=== PATIENT | female | born 1995 | race Hispanic/Latino ===

== ENCOUNTER 2018-08-30 16:12 | Inpatient (IN) | payer OTHER ==
[2018-08-30] MEDS ORDERED: Ondansetron PF 4 MG/2 ML Vial ONE ×2 (16:46→21:10)
[2018-08-30] MEDS ORDERED: ePHEDrine 50 MG/ML VIAL ONE (16:46)
[2018-08-30] MEDS ORDERED: Promethazine HCl 25 MG/ML VIAL IM PRN ×2 (16:47→20:34)
[2018-08-30] MEDS ORDERED: Ondansetron PF 4 MG/2 ML Vial IVP PRN ×2 (16:47→20:34)
[2018-08-30] MEDS ORDERED: CEFAZOLIN 2 GM in Premix Bag 1 BAG IVPB SCH (17:00)
[2018-08-30] MEDS ORDERED: Bicitra 30 ML UDCUP PO SCH (17:00)
[2018-08-30 17:22] LABS: Mean Corpuscular HGB CONC 34.8 g/dL (32.0-36.0); Mean Corpuscular Hemoglobin 29.4 pg (27.0-31.0); Mean Corpuscular Volume 84.6 fL (78.0-98.0); Mean Platelet Volume 8.2 fL (7.4-10.4); Platelet Count 200 thou/uL (130-400); Red Blood Cell (RBC) Count 4.09 mill/uL (4.20-5.40); White Blood Cell (WBC) Count 8.1 thou/uL (4.8-10.8)
[2018-08-30 17:36] LABS: ALT (SGPT) 10 U/L (8-55); AST (SGOT) 15 U/L (5-34); Albumin 3.3 g/dL (3.5-5.0); Alkaline Phosphatase 202 U/L (40-150); Anion Gap 16 mmol/L (10-20); BUN (Urea Nitrogen) 10 mg/dL (7.0-18.7); Bilirubin, Total 0.3 mg/dL (0.2-1.2); Calc. Creatinine Clearance 0 mL/min (70-130); Calcium 9.1 mg/dL (7.8-10.44); Carbon Dioxide 19 mmol/L (22-29); Chloride 107 mmol/L (98-107); Estimated GFR-MDRD Greater than 90; Globulin 3.2 g/dL (2.4-3.5); Glucose 77 mg/dL (70-105); Magnesium 1.8 mg/dL (1.6-2.6); Potassium 4.5 mmol/L (3.5-5.1); Protein, Total 6.5 g/dL (6.0-8.3); Sodium 137 mmol/L (136-145)
[2018-08-30 17:43] VITALS: BMI 42.6
[2018-08-30 17:54] LABS: HBSAg Index 0.36 S/CO (0-0.99); Hep B Surf Ag Non-Reactive S/CO (NonReactive); Syphilis Antibody Nonreactive (Nonreactive); Syphilis Antibody Index 0.12 S/CO (<1.00 Non-Reactive)
[2018-08-30 17:55] LABS: Troponin I Less than 0.010 ng/mL (< 0.028)
--- NOTE | 2018-08-30 18:02 | PDOC.FPROB ---
FMR OB H&P: HPI - History of Present Illness Chief Complaint: elevated anti-c Indentification: 23 year old @ 37.4 wks by LMP/8.2 wk sono History of Present Illness: Christina Matson 23 year old @ 37.4 wks by LMP/8.2 wk sono who presents to L&D due to elevated anti-c antibody titer. No prior history of anemia or FOB has not been tested. Of note, pt has a history of pulmonic stenosis, antepartum echocardiogram did not adequately visualize pulmonic valve. EF and other structures wnl. Primary Care Physician: Marcia FMR OB H&P: Current - Care : 3 Para: 2001 Gestational age: 37.4 Due date: 09/16/2018 Dating Criteria: LMP/8.4 wk sono - OB Labs Blood type: A RH: positive Antibody Screen: positive HIV: negative RPR: negative HepBsAg: negative Rubella: immune Quad screen: negative Pap Smear: NILM (01/2018) 1 hour gtt: 135 A1c: 4.8 GBS: negative H&H: 12.7/37.2 Platelets: 244 - First Trimester Ultrasound First trimester: Performed at 8.2 wks no abnormalities noted. - Anatomy Survey Anatomy survey: Posterior placenta RVOF, 4-chamber view not well-visualized. - Additional Ultrasound Additional: RVOF not well-visualized on follow-up US. echo recommended. Performed on 07/25/18 which showed normal structural heart with possible atrial septal aneurysm. FMR OB H&P: History - [employer] History [employer] History: Menarche @ age 9 Menses interval: 28 days Menstrual flow: 5 days - Surgical History Sx History: C/S x 2 (2012, 2014) - Social History Social History: Prior smoking history. Denies alcohol and drug use. - Family History Family History: HTN: Mother DM II: maternal grandmother, maternal uncle FMR OB H&P: Medications - Current Home Medications: Medication Instructions Recorded Confirmed Type Vitamin 1 tab PO DAILY #0 tab 04/10/13 03/22/15 Rx Allergies/Adverse Reactions: Allergies Allergy/AdvReac Type Severity Reaction Status Date / Time No Known Allergies Allergy Verified 03/22/15 10:30 FMR OB H&P: ROS - Review of Systems General: denies: fever/chills, weight/appetite/sleep changes, night sweats, fatigue, recent trauma, other Eyes: denies: eye pain, vision changes, double vision, scotomas, floaters, others ENT: denies: nasal congestion, rhinorrhea, frequent nose bleed, sinus pain/ pressure, ear pain, ringing in ears, toothache, sore throat, pain with swallowing, trouble with swallowing, other Cardiovascular: denies: chest pain, palpitation, edema, paroxysmal nocturnal dyspnea, orthopnea, claudication, other Respiratory: denies: cough, congestion, shortness of breath, exercise intolerance, other Gastrointestinal: denies: abdominal pain, indigestion, bloating, cramping, nausea, vomiting, diarrhea, constipation, bright red blood, dark black tarry stools, other Genitourinary (Female): denies: incontinence, dysuria, hematuria, polyuria, hesitancy, vaginal discharge, vaginal pain, vaginal bleeding, vaginal mass/sore , contractions, vaginal pressure, other Musculoskeletal: denies: pain, stiffness, tenderness, redness, swelling, decrease range of motion, arthritis/arthralgias, other Neurologic: denies: numbness, syncope, seizures, weakness, loss of counsciousness, headache, other Integumentary: denies: itching, rash, lesions, discoloration, hair changes, nail changes, other Endocrine: denies: cold intolerance, heat intolerance, polydipsia, polyuria, polyphagia, other Psychological: denies: depression, anxiety, paranoia, episodes of chani, episodic change in person, hallucinations, other FMR OB H&P: Vital Signs - Maternal Vital signs: Vital Signs - First Documented Temp Pulse Resp BP Pulse Ox 98.7 F 86 16 105/57 L 97 08/30/18 16:33 08/30/18 16:33 08/30/18 16:33 08/30/18 16:33 08/30/18 16:33 - Heart Tones [place] contractions every: absent FMR OB H&P: Physical Exam - Physical Exam General: NAD HEENT: normocephalic and atraumatic, EOMI, MMM Neck: supple Heart: RRR, normal S1/S2 (2/6 holosystolic murmur heard best in left 2nd intercostal space), no edema, other General: CTAB Abdomen: soft, gravid, non-tender Musculoskeletal: pulses present, FROM in all four extremities, no atrophy Neurological: cranial nerves II through XII intact Skin: no rash Lymphatic: no unusual bruising or bleeding Psychiatric: normal mood and affect FMR OB H&P: Results - Labs Lab results: Laboratory Results - last 24 hr 08/30/18 08/30/18 08/30/18 17:03 17:03 17:03 WBC 8.1 RBC 4.09 L Hgb 12.0 Hct 34.6 L MCV 84.6 MCH 29.4 MCHC 34.8 RDW 14.0 Plt Count 200 MPV 8.2 Sodium Potassium Chloride Carbon Dioxide Anion Gap BUN Creatinine Estimated GFR (MDRD) Glucose Calcium Magnesium Total Bilirubin AST ALT Alkaline Phosphatase Troponin I B-Natriuretic Peptide Serum Total Protein Albumin Globulin Albumin/Globulin Ratio Syphilis IgG/IgM Ab Nonreactive Hep Bs Antigen Non-Reactive 08/30/18 08/30/18 08/30/18 17:03 17:03 17:23 WBC RBC Hgb Hct MCV MCH MCHC RDW Plt Count MPV Sodium 137 Potassium 4.5 Chloride 107 Carbon Dioxide 19 L Anion Gap 16 BUN 10 Creatinine 0.63 Estimated GFR (MDRD) Greater than 90 Glucose 77 Calcium 9.1 Magnesium 1.8 Total Bilirubin 0.3 AST 15 ALT 10 Alkaline Phosphatase 202 H Troponin I Less than 0.010 B-Natriuretic Peptide 16.4 Serum Total Protein 6.5 Albumin 3.3 L Globulin 3.2 Albumin/Globulin Ratio 1.0 L Syphilis IgG/IgM Ab Hep Bs Antigen FMR OB H&P: A/P - Problem List (1) antibody c positive Current Visit: Yes Status: Acute (2) Term Current Visit: Yes Status: Acute Code(s): Z34.90 - ENCNTR FOR SUPRVSN OF NORMAL , UNSP, UNSP TRIMESTER (3) History of pulmonary valve stenosis Current Visit: Yes Status: Acute Code(s): Z86.79 - PERSONAL HISTORY OF OTHER DISEASES OF THE CIRCULATORY SYSTEM Disposition: Will admit patient to L&D for urgent repeat given risk of alloimmunization and HDFN/ anemia Cardiac work-up to include trop, BNP, EKG, given pt's history of pulmonic valve stenosis and risk for HF. maternal vitals wnl. Cat 1 strip. VTE proph: SCDs. Discussion: Date/Time: 08/30/18 1800 This H&P was discussed with [] and [] who agree with the above documentation and plan. Addendum - Attending - Attending Attestation Date/Time: 08/30/18 1900 I personally evaluated the patient and discussed the management with Dr. Carmen I agree with the History, Examination, Assessment and Plan documented above with any addition or exceptions noted below. 23 yo female at 37.4 wks by LMP/8.2 wk sono here for RLTCS. Patient with history of at risk for HDFN due to progressive alloimmunization. Patient recently underwent lab work. Patient previously with stable antibody titer. Last month increased to 1:8 and now increased to 1:32. Patient denies VB or trauma. Good movement. R/B/A discussed with the patient and . Questions answered. Discussed possible complications with expectant management. NST reactive. No evidence of acute distress at this time. Unable to perform MCA dopplers. ACOG/SMFM recommendations reviewed. Discussed with patient. Attempted to contact M that has been following, but unable to reach after several attempts. Patient agrees to proceed with planned delivery. 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 Has been evaluated by cardiology. No restrictions. ECHO report reviewed. Anesthesia notified of risk. Will monitor fluids and oxytocin dosing. Baseline EKG, BNP, CMP, trop ordered. Will monitor closely for HDFN and hyperbilrubinemia. Will also need ECHO performed due to ECHO findings of possible atrial aneurysm. No use of inhaler this . Will avoid hemabate if needed. Meghna
[2018-08-30] MEDS ORDERED: Lactated Ringer's 1,000 ML IV SCH (18:30)
[2018-08-30] MEDS ORDERED: Adacel (T-DAP) 0.5 ML SYRINGE IM ONE (19:58)
[2018-08-30] MEDS ORDERED: Bisacodyl 10 MG SUPP PR PRN (19:58)
[2018-08-30] MEDS ORDERED: Acetaminophen 325 MG TAB PO PRN (19:58)
[2018-08-30] MEDS ORDERED: Lanolin Ointment 7 GM TUBE TOP PRN (19:58)
[2018-08-30] MEDS ORDERED: MORPHINE 5 MG/10 ML PF VIAL ONE (20:17)
[2018-08-30] MEDS ORDERED: ePHEDrine/0.9% NaCl/PF SYRINGE 50 mg/10 ml ONE (20:18)
[2018-08-30] MEDS ORDERED: Oxytocin 10 UNITS/ML VIAL ONE ×2 (20:18→21:37)
[2018-08-30] MEDS ORDERED: Promethazine HCl 25 MG SUPP PR PRN (20:34)
[2018-08-30] MEDS ORDERED: Hydrocerin (Eucerin) Cream 120 gm Jar TOP PRN (20:34)
[2018-08-30] MEDS ORDERED: HYDROmorphone 2 MG/ML VIAL SLOW IVP PRN (20:34)
[2018-08-30] MEDS ORDERED: Naloxone HCl 0.4 mg/ml Vial IVP PRN ×2 (20:34)
[2018-08-30] MEDS ORDERED: Ondansetron HCl/PF 4 MG/2 ML Vial IVP PRN (20:34)
[2018-08-30] MEDS ORDERED: Meperidine HCl/PF 25 MG/ML VIAL SLOW IVP PRN (20:34)
[2018-08-30] MEDS ORDERED: diphenhydrAMINE 50 MG/ML VIAL IVP PRN (20:34)
[2018-08-30] MEDS ORDERED: L&D-Morphine 4 MG/ML VIAL SLOW IVP PRN (20:34)
[2018-08-30] MEDS ORDERED: Naloxone HCl 0.4 mg/ml Vial IV PRN (20:34)
[2018-08-30] MEDS ORDERED: Communication Order-Pharmacy FS SCH (20:45)
[2018-08-30] MEDS ORDERED: Ketorolac Tromethamine 30 MG/ML VIAL IVP SCH (20:45)
[2018-08-30] MEDS ORDERED: Ibuprofen 800 MG TAB PO SCH (22:00)
[2018-08-30] MEDS ORDERED: Misoprostol 200 MCG TAB PR SCH (22:45)
[2018-08-30] MEDS ORDERED: Misoprostol 200 MCG TAB ONE (23:10)
--- NOTE | 2018-08-30 23:10 | PDOC.OPDEL ---
OB Operative/Delivery Note - Additional Findings/Plan Compilations/Other Findings: Date of Procedure: 08/30/2018 Primary Surgeon: Bibiana Morris MD Commercial Management Accountant Surgeon: Darcy Hester DO, DO Preoperative Diagnosis: 1. Adhikari intrauterine at 37.4 weeks gestation 2. At risk with progressive alloimmunization (Anti-c) 3. BMI 43 4. hx of LTCS x2 5. hx of congenital heart disease with pulmonary stenosis 6. mild intermittent asthma, controlled Postoperative Diagnosis: 1. Adhikari intrauterine at 37.4 weeks gestation 2. At risk with progressive alloimmunization (Anti-c) 3. BMI 43 4. hx of LTCS x2 5. hx of congenital heart disease with pulmonary stenosis 6. mild intermittent asthma, controlled Procedure Performed: 1. Repeat low transverse section 2. Lysis of Adhesions Anesthesia: Spinal Indications for the Procedure: Ms. Matson is a 23 year old female at 37.4 weeks gestation. Patient was contacted earlier today for notification of worsening antibody titers (1:8 to 1:32) and risk for compromise. Patient with history of previous delivery x 2. Surgical risks: The patient was informed of the risk and benefits of the procedure. Risks included but were not limited to bleeding, infection, injury to internal organs , and possible hysterectomy. The patient expressed understanding of the risks involved. All questions were answered and the patient consented to the procedure. Description of the procedure: The patient was taken to the operating room where a time out was performed to confirm correct patient and correct procedure. Spinal anesthesia was adequately established and prophylactic IV antibiotics were administered. The patient was then placed in the dorsal supine position with a left tilt of the hips. Pressure points were padded. A Bovie grounding pad was placed on the patients left lower extremity. Arias catheter was placed to monitor urine output during the case. A Roly hugger was placed to maintain control of core body temperature. The patient was then prepped and draped in the usual sterile fashion for a Pfannensteil skin incision. An incision was made in the skin with a surgical scalpel and sharp and blunt dissection was carried out over the subsequent layers of tissue including the fascia The fascia was incised at the midline. The fascial incision was extended bilaterally using the curved Dewey scissors. Moderated scarring noted. The superior edge of the fascial incision was grasp with Michelle clamps, tented up and the underlying rectus muscles were dissected off bluntly and sharply using curved Dewey scissors and Bovie electrocautery. Scarring noted and adhesions lysed as needed. Attention was then turned to the inferior edge, which was grasped with Michelle clamps, tented up and the underlying rectus muscles were dissected off bluntly. The rectus muscles were then divided at midline. Omentum was adhesed superiorly and carefully taken down as needed for visualization. The peritoneum was identified and bluntly entered at its superior margin taking care to avoid the bladder and extended using blunt dissection with good visualization of the bladder. Emile-O retractor was inserted. A transverse incision was made in the lower uterine segment using the scalpel. The uterine incision was extended in cranial-caudal direction using blunt dissection. The amniotic sac was entered bluntly and the amniotic fluid was noted to be clear. The surgeons hand was placed into the uterine cavity. The head was identified, elevated into the abdomen and delivered through the uterine incision with the assistance of fundal pressure. The was examined for a nuchal cord. No nuchal cord was identified. The infant was then delivered with traction and the assistance of fundal pressure. The infants oral and nasal passages were bulb suctioned. Cord clamping was delayed for at least 60 seconds. The was then passed off the table to the awaiting hank team for further care. Cord blood were collected for routine analysis. The placenta was expressed manually, intact with three-vessel cord. Oxytocin was administered by IV infusion to enhance uterine contractions. The uterus was exteriorized and cleared of all clots and remaining products of conception. The uterine incision was reapproximated using 0 Monocryl in a running (locked fashion. Non-hemostatic areas were reinforced using 0 Monocryl suture in [id number] stitches. Good hemostasis was confirmed. The abdomen was evaluated, suctioned and cleared of visible clots. The uterus was replaced into the abdomen and the pericolic gutter were cleared of all clots. The fascia was reapproximated using 0 PDS in a running non-locked fashion. Fascia and surrounding tissue was irrigated with warm NS followed by Bovie electrocautery for non-hemostatic areas. The subcuticular tissue was reapproximated using 3-0 Plain Gut in simple interrupted/ fashion. The skin was reapproximated using 4-0 Monocryl. Wound vac placed. All needle, sponge, and instrument counts were noted to be correct x 3 at the end of the procedure. The patient tolerated the procedure well and was transferred to the recovery room in stable condition. Intravenous Fluids: 1.5 L Urine output: 300 mL Qualitative Blood Loss: 725 mL Findings: Viable Male delivered at 20:56 weighing 3052 g with scores of 7 and 9 at one and five minutes, respectively. Normal appearing uterus, ovaries, and fallopian tubes bilaterally. Complications: None Disposition: Routine pp care.
[2018-08-31] MEDS ORDERED: Sodium Chloride 0.9% 10 ML ONE ×2 (01:38→01:44)
[2018-08-31] MEDS: Ketorolac Tromethamine 30 MG/ML VIAL IVP PRN ×3 (01:48→17:28)
--- NOTE | 2018-08-31 02:06 | PDOC.EVN ---
Event Note - Event Note Event Note: 4 HOUR POST OP NOTE: Subjective: This is a 23 yo who delivered a viable M @ 37.4wks by at 2055 on 08/30/18. Patient is recovering well. She does complain of a mild headache and some nausea. She denies any abdominal pain. Denies vision changes, SOB, chest pain. Per nurse, she has minimal bleeding. Objective: VS stable PE: General: resting comfortably in bed, no acute distress Cardio: RRR Pulm: CTAB, non labored breathing Abdomen: mild TTP more in LLQ, no rebound or guarding; wound vac in place over incision - clean, dry and intact MSK: no LE edema Neuro: non focal A&P - Continue routine PP Care - Will continue to monitor VS - Will give zofran PRN for nausea - Tylenol/motrin PRN for pain/headache
[2018-08-31 07:33] LABS: Hemoglobin 10.2 g/dL (12.0-16.0); Mean Corpuscular HGB CONC 34.1 g/dL (32.0-36.0); Mean Corpuscular Hemoglobin 29.4 pg (27.0-31.0); Mean Corpuscular Volume 86.3 fL (78.0-98.0); Mean Platelet Volume 7.7 fL (7.4-10.4); Platelet Count 165 thou/uL (130-400); RBC Distribution Width 14.2 % (11.5-14.5); Red Blood Cell (RBC) Count 3.47 mill/uL (4.20-5.40)
--- NOTE | 2018-08-31 08:20 | PDOC.PP ---
Post Progress Note Post Day #: 1 Subjective: Pt feeling well this AM, reports some rest overnight. Good pain control. Tolerating PO fluids, has not tried solids, no ambulation yet, no flatus. No complaints or concerns at this time. Vital Signs (12 hours) Temp Pulse Resp BP Pulse Ox 08/31/18 06:10 98.3 F 82 18 100/51 L 97 08/31/18 02:30 98.2 F 77 18 106/49 L 96 08/31/18 01:30 97.9 F 87 18 105/48 L 96 08/31/18 00:25 97.7 F 80 18 105/47 L 95 Weight Weight 105.687 kg - Physical Examination General: NAD Cardiovascular: RRR Deviation from normal: grade 3/6 holosystolic murmur Respiratory: clear to auscultation bilaterally, non-labored breathing Abdominal: no distention, appropriately TTP Deviation from normal: wound vac in place Neurological: no gross focal deficits Psychiatric: A&Ox3, normal affect Result Diagrams: 08/31/18 07:20 08/30/18 17:03 Additional Labs: Post Labs Blood Type A POSITIVE 08/30/18 17:03 Hep Bs Antigen Non-Reactive S/CO (NonReactive) 08/30/18 17:03 (1) care and examination Code(s): Z39.2 - ENCOUNTER FOR ROUTINE FOLLOW-UP Status: Acute (2) History of pulmonary valve stenosis Code(s): Z86.79 - PERSONAL HISTORY OF OTHER DISEASES OF THE CIRCULATORY SYSTEM Status: Acute (3) antibody c positive Status: Acute (4) Asthma Code(s): J45.909 - UNSPECIFIED ASTHMA, UNCOMPLICATED Status: Active - Assessment/Plan This is a 23 yo who delivered a viable M @ 37.4wks by at 2055 on 08/30/18 Post care A- recovering well overall, anticipate ambulation and PO solid intake today. Will await + flatus or BM. P- Continue PREETHI motrin with prn tylenol -zofran prn for nausea -encourage breast feeding Pulmonary valve stenosis A- MD aware, currently hemodynamically stable. murmur present on exam P- Will be cautious with fluids Asthma A- Pt controlled, no exacerbation P- albuterol prn Anti-C antibody A- MD aware, at risk for hemolytic hyperbilirubinemia P- mgmt per mgmt Addendum - Attending - Attending Attestation Date/Time: 08/31/18 5931 I personally evaluated the patient and discussed the management with Dr. Fleming I agree with the History, Examination, Assessment and Plan documented above with any addition or exceptions noted below. Stable POD #1. Meeting milestones. Lungs clear with no evidence of fluid overload. Browning still in place with UOP >50 ml/hr over last 12hr. Acute blood loss anemia in setting of chronic anemia of . Appropriate postoperative H+H. D/c browning today. Encourage ambulation.
[2018-08-31] MEDS: Prenatal Vitamin 1 TAB PO SCH (08:21)
[2018-09-01] MEDS: Ibuprofen 800 MG TAB PO SCH ×4 (00:18→22:07)
--- NOTE | 2018-09-01 07:59 | PDOC.PP ---
Post Progress Note Post Day #: 2 Subjective: Pt continues to feel well. Reports good pain control but that she does not like to get up and ambulate because of discomfort. Good PO toleration, + flatus, no BM. reports she feels well enough to go home this afternoon/evening. No concerns or complaints. Vital Signs (12 hours) Temp Pulse Resp BP Pulse Ox 09/01/18 04:20 98.3 F 75 18 93/51 L 09/01/18 00:20 98.4 F 94 18 94/51 L 08/31/18 20:20 98.5 F 101 H 18 96/49 L 97 Weight Weight 105.687 kg - Physical Examination General: NAD Cardiovascular: RRR Deviation from normal: Grade 3/6 holosystolic murmur Respiratory: clear to auscultation bilaterally, non-labored breathing Abdominal: + bowel sounds, no distention, appropriately TTP Deviation from normal: wound vac in place Neurological: no gross focal deficits Psychiatric: A&Ox3, normal affect Result Diagrams: 08/31/18 07:20 08/30/18 17:03 Additional Labs: Post Labs Blood Type A POSITIVE 08/30/18 17:03 Hep Bs Antigen Non-Reactive S/CO (NonReactive) 08/30/18 17:03 (1) care and examination Code(s): Z39.2 - ENCOUNTER FOR ROUTINE FOLLOW-UP Status: Acute (2) History of pulmonary valve stenosis Code(s): Z86.79 - PERSONAL HISTORY OF OTHER DISEASES OF THE CIRCULATORY SYSTEM Status: Acute (3) antibody c positive Status: Acute (4) Asthma Code(s): J45.909 - UNSPECIFIED ASTHMA, UNCOMPLICATED Status: Active - Assessment/Plan This is a 23 yo who delivered a viable M @ 37.4wks by at 6 on 08/30/18 Post care, day 2 A- recovering well overall, medically stable P- Continue PREETHI motrin with prn tylenol -zofran prn for nausea -encourage ambulation -likely DC today Pulmonary valve stenosis A- aware, currently hemodynamically stable. murmur present on exam P- f/u outpt Asthma A- Pt controlled, no exacerbation P- albuterol prn Anti-C antibody A- aware, at risk for hemolytic hyperbilirubinemia P- mgmt per mgmt Addendum - Attending - Attending Attestation Date/Time: 09/01/18 1013 I personally evaluated the patient and discussed the management with Dr. Fleming I agree with the History, Examination, Assessment and Plan documented above with any addition or exceptions noted below. Stable POD #2 s/p RLTCS Meeting appropriate milestones No evidence of cardiovascular compromise Wound vac on and working. No surrounding erythema or drainage. Pt not wearing SCDs. Given major risk factors of BMI > 40 and s/p , will start lovenox for dvt prophylaxis at this time.
[2018-09-01] MEDS: Prenatal Vitamin 1 TAB PO SCH (08:11)
[2018-09-01 08:38] VITALS: TEMP 98.1
[2018-09-01] MEDS ORDERED: Enoxaparin Sodium 40 MG/0.4 ML SYRINGE SC SCH (10:00)
[2018-09-02] MEDS: Ibuprofen 800 MG TAB PO SCH (05:28)
--- NOTE | 2018-09-02 07:30 | PDOC.PP ---
Post Progress Note Post Day #: 3 Subjective: Pt doing well, good rest overnight, good ambulation, minimal bleeding, good PO toleration, + BM and flatus, pain controlled with ibuprofen and tylenol. Pt feels ready to go home today. Vital Signs (12 hours) Temp Pulse Resp BP Pulse Ox 09/01/18 20:25 98.1 F 87 18 108/52 L 98 Weight Weight 105.687 kg - Physical Examination General: NAD Cardiovascular: RRR Deviation from normal: grade 3/6 holosystolic murmur Respiratory: clear to auscultation bilaterally, non-labored breathing Abdominal: + bowel sounds, appropriately TTP Deviation from normal: wound vac in place Neurological: no gross focal deficits Psychiatric: A&Ox3, normal affect Result Diagrams: 08/31/18 07:20 08/30/18 17:03 Additional Labs: Post Labs Blood Type A POSITIVE 08/30/18 17:03 Hep Bs Antigen Non-Reactive S/CO (NonReactive) 08/30/18 17:03 (1) care and examination Code(s): Z39.2 - ENCOUNTER FOR ROUTINE FOLLOW-UP Status: Acute (2) History of pulmonary valve stenosis Code(s): Z86.79 - PERSONAL HISTORY OF OTHER DISEASES OF THE CIRCULATORY SYSTEM Status: Acute (3) antibody c positive Status: Acute (4) Asthma Code(s): J45.909 - UNSPECIFIED ASTHMA, UNCOMPLICATED Status: Active - Assessment/Plan This is a 23 yo who delivered a viable M @ 37.4wks by at 2056 on 08/30/18 Post care, day 3 A- recovering well overall, medically stable P- Continue PREETHI motrin with prn tylenol -zofran prn for nausea -encourage ambulation -likely DC today Pulmonary valve stenosis A- MD aware, currently hemodynamically stable. murmur present on exam P- f/u outpt Asthma A- Pt controlled, no exacerbation P- albuterol prn Anti-C antibody A- aware, at risk for hemolytic hyperbilirubinemia P- mgmt per mgmt
[2018-09-02] MEDS: Prenatal Vitamin 1 TAB PO SCH (08:39)
[2018-09-02] MEDS ORDERED: Enoxaparin Sodium 40 MG/0.4 ML SYRINGE SC SCH (09:00)
[2018-09-02 11:18] VITALS: BP 97/54
--- NOTE | 2018-09-04 14:58 | EKG ---
Test Reason : Blood Pressure : / mmHG Vent. Rate : 079 BPM Atrial Rate : 079 BPM P-R Int : 128 ms QRS Dur : 068 ms QT Int : 354 ms P-R-T Axes : 020 038 006 degrees QTc Int : 405 ms Normal sinus rhythm Normal ECG Confirmed by ARIS MORELOS ([id number]) on 09/04/2018 2:58:22 PM Referred By: RORY Confirmed By:ARIS MORELOS
== END 2018-09-02 13:30 | disposition home or self-care (01) | DRG 787 ==
LOC: L&D 16:12 → 3SW 08-31 00:38
PROVIDERS: ADMIT Student in an Organized Health Care Education/Training Program; ATTEND Student in an Organized Health Care Education/Training Program
PROC: 10D00Z1 Extraction of Products of Conception, Low, Open Approach (ICD-10-PCS; principal; 2018-08-30)
PROC: 0DNU0ZZ Release Omentum, Open Approach (ICD-10-PCS; 2018-08-30)
DX: O99.89 Other specified diseases and conditions complicating pregnancy, childbirth and the puerperium (principal); D62 Acute posthemorrhagic anemia; Q22.1 Congenital pulmonary valve stenosis; O99.52 Diseases of the respiratory system complicating childbirth; J45.20 Mild intermittent asthma, uncomplicated; O99.02 Anemia complicating childbirth; N73.6 Female pelvic peritoneal adhesions (postinfective); O34.211 Maternal care for low transverse scar from previous cesarean delivery; Z37.0 Single live birth; Z3A.37 37 weeks gestation of pregnancy; Z86.79 Personal history of other diseases of the circulatory system
CPT/HCPCS: 36415; 51702; 80053; 83735; 83880; 84484; 85027; 86780; 86850; 86870; 86900; 86901; 86905; 86922; 87340; 90715; 93005; 93010; 99285; J0690; J1650; J1885; J2270; J2405; J2550; J2590; J3490

== ENCOUNTER 2020-03-15 13:28 | Emergency (ER) | payer OTHER | END 2020-03-15 15:36 | disposition home or self-care (01) | LOC: ERS 13:28 | DX: K02.9 Dental caries, unspecified (principal); J45.909 Unspecified asthma, uncomplicated | CPT/HCPCS: 99283 ==

== ENCOUNTER 2020-08-09 16:46 | Observation (INO) | payer OTHER, SELFPAY ==
[2020-08-09 18:46] LABS: #Basophils 0.1 thou/uL (0.0-0.2); #Eosinphils 0.2 thou/uL (0.0-0.7); #Lymphocytes 3.4 thou/uL (1.20-3.40); #Monocytes 0.6 thou/uL (0.11-0.59); #Neutrophils 5.9 thou/uL (1.40-6.50); %Basophils 0.8 % (0.0-1.0); %Eosinophils 1.7 % (0.0-10.0); %Lymphocytes 33.3 % (21.0-51.0); %Monocytes 5.7 % (0.0-10.0); %Neutrophils 58.5 % (42.0-75.0); Mean Corpuscular HGB CONC 33.2 g/dL (32.0-36.0); Mean Corpuscular Hemoglobin 29.8 pg (27.0-31.0); Mean Corpuscular Volume 89.8 fL (78.0-98.0); Mean Platelet Volume 8.4 fL (7.4-10.4); Platelet Count 137 thou/uL (130-400); Red Blood Cell (RBC) Count 4.36 mill/uL (4.20-5.40); White Blood Cell (WBC) Count 10.1 thou/uL (4.8-10.8)
[2020-08-09 19:02] LABS: Pregnancy Test - Urine (BHCG) Negative (Negative)
[2020-08-09 19:03] LABS: Bilirubin Negative (Negative); Blood, Urine Negative (Negative); Clarity Clear (Clear); Glucose, Urine (Dipstick) Normal (Negative); Ketone, Urine Negative (Negative); Leukocyte Negative Leu/uL (Negative); Nitrite Negative (Negative); Pregu Control Background? CLEAR/WHITE (CLR/WHITE); Pregu Control Bar Appear? YES (CONTROL BAR); Protein, Urine (Dipstick) 10 mg/dL (Neg-Trace); Specific Gravity 1.023 (1.002-1.036); Specific Gravity, Urine 1.026 (1.002-1.036); Urobilinogen Normal mg/dL (Less than 2)
[2020-08-09 19:05] LABS: ALT (SGPT) 9 U/L (8-55); AST (SGOT) 14 U/L (5-34); Albumin 4.3 g/dL (3.5-5.0); Alkaline Phosphatase 91 U/L (40-110); Anion Gap 10 mmol/L (10-20); BUN (Urea Nitrogen) 15 mg/dL (7.0-18.7); Bilirubin, Total 0.6 mg/dL (0.2-1.2); Calc. Creatinine Clearance 0 mL/min (70-130); Calcium 9.8 mg/dL (7.8-10.44); Carbon Dioxide 26 mmol/L (22-29); Chloride 108 mmol/L (98-107); Globulin 3.4 g/dL (2.4-3.5); Glucose 90 mg/dL (70-105); Potassium 4.2 mmol/L (3.5-5.1); Protein, Total 7.7 g/dL (6.0-8.3); Sodium 140 mmol/L (136-145)
[2020-08-09] MEDS ORDERED: Ketorolac Tromethamine 30 MG/ML VIAL ONE (20:22)
[2020-08-09] MEDS ORDERED: Meclizine HCl 25 MG TAB ONE (20:22)
[2020-08-09] MEDS ORDERED: diphenhydrAMINE 50 MG/ML VIAL ONE (20:22)
[2020-08-09] MEDS ORDERED: Metoclopramide HCl 10 MG/2 ML VIAL ONE (20:22)
[2020-08-09] MEDS ORDERED: Sodium Chloride 0.9% 1,000 ML IV SCH (23:37)
[2020-08-09] MEDS ORDERED: Ondansetron PF 4 MG/2 ML Vial IVP PRN (23:37)
[2020-08-09] MEDS ORDERED: Acetaminophen 500 MG TAB PO PRN (23:37)
[2020-08-09] MEDS ORDERED: diphenhydrAMINE 50 MG/ML VIAL IVP PRN (23:37)
[2020-08-09] MEDS ORDERED: hydrALAZINE 20 MG/ML VIAL SLOW IVP PRN (23:37)
[2020-08-09] MEDS ORDERED: Ondansetron ODT 4 MG TAB PO PRN (23:37)
[2020-08-09] MEDS ORDERED: Dexamethasone 10 MG/ML VIAL SLOW IVP SCH (23:59)
[2020-08-10] MEDS ORDERED: Ketorolac Tromethamine 30 MG/ML VIAL ONE ×2 (00:12→05:10)
[2020-08-10] MEDS: Ketorolac Tromethamine 30 MG/ML VIAL IVP SCH ×2 (00:15→05:33)
[2020-08-10] MEDS: Metoclopramide HCl 10 MG/2 ML VIAL IVP SCH ×2 (00:17→05:34)
[2020-08-10 00:32] VITALS: BMI 41.1
[2020-08-10 04:04] VITALS: BP 105/81; TEMP 98.1
[2020-08-10 04:29] LABS: #Basophils 0.1 thou/uL (0.0-0.2); #Lymphocytes 1.3 thou/uL (1.20-3.40); #Monocytes 0.1 thou/uL (0.11-0.59); #Neutrophils 10.7 thou/uL (1.40-6.50); %Basophils 0.7 % (0.0-1.0); %Eosinophils 0.2 % (0.0-10.0); %Lymphocytes 10.5 % (21.0-51.0); %Monocytes 1.1 % (0.0-10.0); %Neutrophils 87.4 % (42.0-75.0); Hemoglobin 12.3 g/dL (12.0-16.0); Mean Corpuscular HGB CONC 33.3 g/dL (32.0-36.0); Mean Corpuscular Hemoglobin 30.1 pg (27.0-31.0); Mean Corpuscular Volume 90.2 fL (78.0-98.0); Mean Platelet Volume 8.4 fL (7.4-10.4); Platelet Count 126 thou/uL (130-400); RBC Distribution Width 12.8 % (11.5-14.5); White Blood Cell (WBC) Count 12.2 thou/uL (4.8-10.8)
[2020-08-10 04:49] LABS: Anion Gap 8 mmol/L (10-20); BUN (Urea Nitrogen) 15 mg/dL (7.0-18.7); Calc. Creatinine Clearance 150 mL/min (70-130); Calcium 9.6 mg/dL (7.8-10.44); Carbon Dioxide 25 mmol/L (22-29); Chloride 109 mmol/L (98-107); Glucose 126 mg/dL (70-105); Potassium 4.7 mmol/L (3.5-5.1); Sodium 137 mmol/L (136-145)
[2020-08-10] MEDS ORDERED: Metoclopramide HCl 10 MG/2 ML VIAL ONE (05:11)
[2020-08-10] MEDS ORDERED: Meclizine HCl 25 MG TAB ONE (05:11)
[2020-08-10] MEDS ORDERED: Meclizine HCl 25 MG TAB PO SCH (06:00)
[2020-08-10 07:02] LABS: SARS-CoV-2 PCR by NAA Not Detected (NotDetected)
[2020-08-10] MEDS ORDERED: Famotidine 20 MG TAB ONE (08:55)
[2020-08-10] MEDS ORDERED: Famotidine 20 MG TAB PO SCH (09:00)
== END 2020-08-10 12:55 | disposition home or self-care (01) ==
LOC: ERS 16:46 → ERHOLD 23:06
PROVIDERS: ADMIT Family Medicine; ATTEND Hospitalist
DX: R51.9 Headache, unspecified (principal); R11.2 Nausea with vomiting, unspecified; R01.1 Cardiac murmur, unspecified; J45.909 Unspecified asthma, uncomplicated; R42 Dizziness and giddiness; E66.01 Morbid (severe) obesity due to excess calories; Z68.41 Body mass index [BMI] 40.0-44.9, adult; Z20.822 Contact with and (suspected) exposure to COVID-19
CPT/HCPCS: 36415; 70450; 80048; 80053; 81003; 81025; 85025; 87635; 93005; 96365; 96366; 96375; 96376; G0378; J1100; J1200; J1885; J2765; U0003; U0005

== ENCOUNTER 2021-12-27 20:02 | Emergency (ER) | payer OTHER, SELFPAY ==
[2021-12-27] MEDS ORDERED: Dexamethasone 10 MG/ML VIAL ONE (20:52)
[2021-12-27] MEDS ORDERED: Albuterol Sulfate 2.5 mg/0.5 ml Neb ONE (20:55)
[2021-12-27] MEDS ORDERED: Albuterol Sulfate 1.25 MG/3 ML NEB ONE (20:55)
== END 2021-12-27 21:38 | disposition home or self-care (01) ==
LOC: ERS 20:02
DX: J45.901 Unspecified asthma with (acute) exacerbation (principal); F17.200 Nicotine dependence, unspecified, uncomplicated
CPT/HCPCS: J1100; J7611